=== PATIENT | male | born 1970 | race Caucasian/White ===

== ENCOUNTER → 2020-11-16 | Outpatient (CLI) | payer OTHER ==
--- NOTE | 2020-11-17 04:04 | MR ---
EXAMINATION TYPE: MR shoulder LT wo con DATE OF EXAM: 11/16/2020 COMPARISON: None HISTORY: Chronic Left shoulder pain. Multiplanar multiecho imaging of the left shoulder without contrast. There is some spurring at the AC joint. There is impingement on the supraspinatus muscle due to spur formation. The supraspinatus tendon appears intact. There is no evidence of rotator cuff tear. Biceps tendon is intact. Subscapularis tendon appears normal. Glenoid jh appear normal. There is n o evidence of a fracture. IMPRESSION: No evidence of rotator cuff tear. There is spurring at the AC joint with subacromial impingement.
== END | disposition home or self-care (01) ==
LOC: RADMRIMAIN 17:21
PROVIDERS: ATTEND Orthopaedic Surgery
DX: M25.512 Pain in left shoulder (principal)

== ENCOUNTER → 2020-12-14 | Outpatient (CLI) | payer OTHER | END | disposition home or self-care (01) | LOC: LABMAIN 18:38 | PROVIDERS: ATTEND Specialist/Technologist Athletic Trainer | DX: Z20.828 Contact with and (suspected) exposure to other viral communicable diseases (principal) | CPT/HCPCS: 87635 ==